=== PATIENT | male | born 1950 | race Caucasian/White ===

== ENCOUNTER 2018-03-28 14:11 | Emergency (ER) | payer MEDICARE, OTHER ==
[2018-03-28 14:11] VITALS: BMI 37.1
[2018-03-28 14:16] VITALS: BP 119/80; PULSE 98; RESP 22; TEMP 97.9; O2SAT 97
--- NOTE | 2018-03-28 16:24 | ED PDOC ---
Lower Extremity Pain/Injury Time Seen by Provider: 03/28/18 14:54 Chief Complaint (Nursing): Lower Extremity Problem/Injury Chief Complaint (Provider): body pain all over History Per: Patient History/Exam Limitations: no limitations Onset/Duration Of Symptoms: Persistent, Worse Since (past 5-6 days) Current Symptoms Are (Timing): Still Present Severity: Severe Pain Scale Rating Of: 9 Additional History Per: Patient Additional Complaint(s): 67 yr old M presents to ED via ambulance with complaint of worsening acute on chronic joint and muscle pain. PMHx includes CAD, HTN, depression and chronic body pain. Describes pain as "achy", severe 9/10, bilaterally in wrists, shoulders, upper back, knees and ankles. Reports he did not take any medication today because he ran out. Denies trauma, falls, fever or chills. Reports he ambulates with a walker. Reports he has seen pain management in the past and was prescribed ibuprofen 600mg. [facility] [place] - Risk Factors DVT Risk Factors: Pos: Decreased Activity Past Medical History Vital Signs: Last Vital Signs Temp 97.9 F 03/28/18 14:13 Pulse 98 H 03/28/18 14:13 Resp 22 03/28/18 14:13 BP 119/80 03/28/18 14:13 Pulse Ox 97 03/28/18 14:13 - Medical History PMH: Back Problems, CAD, Depression, HTN, Hypercholesterolemia - Surgical History Surgical History: Coronary Stent (x 2) - Family History Family History: States: Unknown Family Hx - Living Arrangements Living Arrangements: Alone - Social History Current smoker - smoking cessation education provided: No Ex-Smoker (has not smoked in the last 12 months): No Alcohol: Social Drugs: Cannabis (last use 3 months ago) - Immunization History Hx Tetanus Toxoid Vaccination: Yes Hx Influenza Vaccination: Yes Hx Pneumococcal Vaccination: Yes - Home Medications Home Medications: Ambulatory Orders Medication Instructions Recorded Aspirin [Ecotrin] 81 mg PO DAILY 11/26/17 Atenolol 100 mg PO 11/26/17 Bupropion HCl [Zyban] 150 mg PO DAILY 11/26/17 Cholecalciferol [Vitamin D] 1,000 iu PO 11/26/17 Isosorbide Mononitrate [Isosorbide 30 mg PO 11/26/17 Mononitrate ER] Lisinopril [Zestril] 10 mg PO 11/26/17 Nitroglycerin 0.4 mg SL 11/26/17 Quetiapine Fumarate [Seroquel] 50 mg PO 11/26/17 Simvastatin 40 mg PO 11/26/17 amLODIPine [Norvasc] 10 mg PO 11/26/17 traMADol [Ultram] 50 mg PO TID PRN #12 tab 11/26/17 Ibuprofen [Motrin Tab] 600 mg PO Q6 PRN #20 tab 03/28/18 - Allergies Allergies/Adverse Reactions: Allergies Allergy/AdvReac Type Severity Reaction Status Date / Time Tetracyclines Allergy RASH Verified 03/28/18 14:13 Wells Criteria for PE - Wells Criteria for Pulmonary Embolism Clinical Signs and Symptoms of DVT: No P.E is #1 Diagnosis, or Equally Likely: No Heart Rate >100: No Immobilization at least 3 days;Surgery previous 4 weeks: No Previous, objectively diagnosed PE or DVT: No Hemoptysis: No Malignancy w/treatment within 6 months, or palliative: No Total Score: 0 Review of Systems Constitutional: Negative for: Fever, Chills Eyes: Negative for: Vision Change ENT: Negative for: Nose Discharge, Nose Congestion Cardiovascular: Negative for: Chest Pain, Palpitations, Edema, Light Headedness Respiratory: Negative for: Cough, Shortness of Breath Gastrointestinal: Negative for: Nausea, Vomiting, Abdominal Pain, Diarrhea Genitourinary Male: Negative for: Dysuria, Frequency Musculoskeletal: Positive for: Shoulder Pain (bilateral), Back Pain (bilateral) , Other (bilateral wrist, knee and ankle pain). 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 Negative for: Numbness, Confusion, Dizziness Physical Exam - Physical Exam Appears: Positive for: No Acute Distress Head Exam: Positive for: ATRAUMATIC, NORMOCEPHALIC Skin: Positive for: Warm, Dry. Negative for: Normal Color (venous stasis skin changes in bilateral lower extremities) Eye Exam: Positive for: EOMI, PERRL ENT: Negative for: Pharyngeal Erythema, Tonsillar Exudate Neck: Positive for: Painless ROM, Supple (positive tenderness to palpation along trapezius bilaterally) Cardiovascular/Chest: Positive for: Regular Rate, Rhythm. Negative for: Gallop , Murmur, Bradycardia, Tachycardia Respiratory: Positive for: Normal Breath Sounds. Negative for: Rales, Rhonchi Pulses-Carotid (L): 2+ Pulses-Carotid (R): 2+ Pulses-Dorsalis Pedis (L): 2+ Pulses-Dorsalis Pedis (R): 2+ Pulses-Radial (L): 2+ Pulses-Radial (R): 2+ Gastrointestinal/Abdominal: Positive for: Bowel Sounds (present), Soft. Negative for: Tenderness Back: Positive for: Normal Inspection Extremity: Positive for: Normal ROM, Pedal Edema (pitting edema + 3 in LLE, +1 in RLE). 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 Negative for: Motor/Sensory Deficits, Aphasia, Facial Droop - ECG O2 Sat by Pulse Oximetry: 97 - Progress ED Course And Treament: -Ibuprofen 600mg PO once -Prednisone 20mg PO once -16:42 Patient sitting in bed comfortably, in no acute distress, stable Disposition - Clinical Impression Clinical Impression: Polyarthralgia, Polymyalgia - Patient ED Disposition Is Patient to be Admitted: No Counseled Patient/Family Regarding: Need For Followup, Rx Given - Disposition Disposition: Routine/Home Disposition Time: 16:44 Condition: GOOD Additional Instructions: -Follow up with your PMD within 1 week -Take Ibuprofen as prescribed with food -Return to ED if symptoms persist or worsen, or if any concerns Prescriptions: Ibuprofen [Motrin Tab] 600 mg PO Q6 PRN #20 tab PRN Reason: Pain, Moderate (4-7) Instructions: Muscle and Bone Pain (DC), Joint Pain Forms: [employer] (Persian)
== END 2018-03-28 16:55 | disposition home or self-care (01) ==
LOC: H.ER 14:11
DX: M35.3 Polymyalgia rheumatica (principal); M13.0 Polyarthritis, unspecified; E78.00 Pure hypercholesterolemia, unspecified; F32.9 Major depressive disorder, single episode, unspecified; I10 Essential (primary) hypertension; I25.10 Atherosclerotic heart disease of native coronary artery without angina pectoris; Z79.82 Long term (current) use of aspirin; Z87.891 Personal history of nicotine dependence; Z95.5 Presence of coronary angioplasty implant and graft

== ENCOUNTER 2018-04-07 10:08 | Emergency (ER) | payer MEDICARE ==
[2018-04-07 10:08] VITALS: BMI 37.1
[2018-04-07 10:24] VITALS: BP 110/67; PULSE 76; RESP 18; TEMP 99; O2SAT 99
--- NOTE | 2018-04-07 10:48 | ED PDOC ---
Arrival/HPI - General Chief Complaint: Pain, Chronic Time Seen by Provider: 04/07/18 10:46 Historian: Patient (67 y/o male h/o chronic joint pain states he is out of pain medication. Was seen 03/28 and given prednisone/motrin at that time. States he has occupational therapy tomorrow and feels pain today has increased and will prevent him from going. Admits that he was prescribed percocet in past for pain but was found to have thc in urine and [facility].) Past Medical History - Cardiac Hx Hypertension: Yes - Musculoskeletal/Rheumatological Hx Musculoskeletal Disorders: Yes Other/Comment: shoulder problems - Psychiatric Hx Depression: Yes Hx Substance Use: No - Surgical History Hx Coronary Stent: Yes (x 2) - Anesthesia Hx Anesthesia: Yes Hx Anesthesia Reactions: No Family/Social History Family/Social History: No Known Family HX Smoking Status: Never Smoked Hx Alcohol Use: Yes Hx Substance Use: No Allergies/Home Meds Allergies/Adverse Reactions: Allergies Tetracyclines Allergy (Verified 04/07/18 10:21) RASH Home Medications: Home Meds Medication Instructions Recorded Confirmed Aspirin [Ecotrin] 81 mg PO DAILY 11/26/17 11/26/17 Atenolol 100 mg PO 11/26/17 Bupropion HCl [Zyban] 150 mg PO DAILY 11/26/17 11/26/17 Cholecalciferol [Vitamin D] 1,000 iu PO 11/26/17 Isosorbide Mononitrate [Isosorbide 30 mg PO 11/26/17 Mononitrate ER] Lisinopril [Zestril] 10 mg PO 11/26/17 Nitroglycerin 0.4 mg SL 11/26/17 Quetiapine Fumarate [Seroquel] 50 mg PO 11/26/17 Simvastatin 40 mg PO 11/26/17 amLODIPine [Norvasc] 10 mg PO 11/26/17 Review of Systems - Review of Systems Constitutional: Normal Eyes: Normal ENT: Normal Respiratory: Normal Cardiovascular: Normal Gastrointestinal: Normal Genitourinary Male: Normal Musculoskeletal: Normal Skin: Normal Neurological: Normal Endocrine: Normal Hemo/Lymphatic: Normal Psychiatric: Normal Physical Exam Vital Signs Temp Pulse Resp BP Pulse Ox 04/07/18 10:21 99 F 76 18 110/67 99 Temperature: Afebrile Blood Pressure: Normal Pulse: Regular Respiratory Rate: Normal Appearance: Positive for: Well-Appearing, Non-Toxic, Comfortable Pain Distress: None Mental Status: Positive for: Alert and Oriented X 3 - Systems Exam Head: Present: Atraumatic, Normocephalic Pupils: Present: PERRL Extroacular Muscles: Present: EOMI Conjunctiva: Present: Normal Mouth: Present: Moist Mucous Membranes Neck: Present: Normal Range of Motion Respiratory/Chest: Present: Clear to Auscultation, Good Air Exchange. No: Respiratory Distress, Accessory Muscle Use Cardiovascular: Present: Regular Rate and Rhythm, Normal S1, S2. No: Murmurs Abdomen: No: Tenderness, Distention, Peritoneal Signs Back: Present: Normal Inspection Upper Extremity: Present: Normal Inspection. No: Cyanosis, Edema Lower Extremity: Present: Normal Inspection. No: Edema Neurological: Present: GCS=15, CN II-XII Intact, Speech Normal Skin: Present: Warm, Dry, Normal Color. No: Rashes Psychiatric: Present: Alert, Oriented x 3, Normal Insight, Normal Concentration Medical Decision Making ED Course and Treatment: 04/07/18 10:48 toradol 30 mg IM x 1 dose Patient advised to f/u with PMD for further management of pain. Disposition/Present on Arrival - Present on Arrival Any Indicators Present on Arrival: No - Disposition Have Diagnosis and Disposition been Completed?: Yes Diagnosis: Polyarthralgia Disposition: HOME/ ROUTINE Disposition Time: 10:49 Patient Plan: Discharge Condition: FAIR Prescriptions: Meloxicam 15 mg PO DAILY PRN #7 tablet PRN Reason: Pain, Moderate (4-7) Referrals: [facility] [Outside]
== END 2018-04-07 11:27 | disposition home or self-care (01) ==
LOC: H.ER 10:08
DX: M13.0 Polyarthritis, unspecified (principal); G89.29 Other chronic pain; I10 Essential (primary) hypertension; Z79.82 Long term (current) use of aspirin; Z95.5 Presence of coronary angioplasty implant and graft; F32.9 Major depressive disorder, single episode, unspecified
CPT/HCPCS: 96372; 99284; J1885